=== PATIENT | male | born 1970 | race Caucasian/White ===

== ENCOUNTER 2018-01-03 11:04 | Outpatient (CLI) | payer MEDICARE ==
[2018-01-03 13:12] LABS: Bilirubin Small (Negative); Blood, Urine Negative (Negative); Clarity CLEAR (Clear); Glucose, Urine (Dipstick) Negative (Negative); Leukocyte Trace (Negative); Nitrite Negative (Negative); Protein, Urine (Dipstick) 30 mg/dL (Neg-Trace); Specific Gravity, Urine 1.031 (1.002-1.036); pH, Urine 5.5 (5.0-9.0)
[2018-01-03 13:15] LABS: Bacteria/HPF None Seen HPF (None Seen); Hyaline Casts/LPF 7-10 HYALINE CAST LPF (0-3 Hyaline); Pathc Cast-AUWi Flag 1.01 (0-2.49); Squamous Epithelial 0-3 HPF (0-3)
[2018-01-03 13:22] LABS: Hemoglobin 14.8 g/dL (14.0-18.0); Mean Corpuscular HGB CONC 33.6 g/dL (32.0-36.0); Mean Corpuscular Hemoglobin 30.6 pg (27.0-31.0); Mean Corpuscular Volume 91.2 fL (78.0-98.0); Mean Platelet Volume 7.6 fL (7.4-10.4); Platelet Count 278 thou/uL (130-400); RBC Distribution Width 11.6 % (11.5-14.5); Red Blood Cell (RBC) Count 4.84 mill/uL (4.70-6.10); White Blood Cell (WBC) Count 7.1 thou/uL (4.8-10.8)
[2018-01-03 13:26] LABS: PTT 32.1 SEC (22.9-36.1); Prothrombin Time 13.3 SEC (12.0-14.7)
[2018-01-03 13:34] LABS: RBC/HPF None Seen HPF (0-3)
[2018-01-03 13:35] LABS: Anion Gap 14 mmol/L (10-20); BUN (Urea Nitrogen) 21 mg/dL (8.9-20.6); Calc. Creatinine Clearance 0 mL/min (70-130); Calcium 9.3 mg/dL (7.8-10.44); Carbon Dioxide 23 mmol/L (22-29); Chloride 102 mmol/L (98-107); Estimated GFR-MDRD 47; Glucose 121 mg/dL (70-105); Potassium 3.7 mmol/L (3.5-5.1); Sodium 135 mmol/L (136-145)
--- NOTE | 2018-01-03 17:19 | EKG ---
Test Reason : Blood Pressure : / mmHG Vent. Rate : 090 BPM Atrial Rate : 090 BPM P-R Int : 174 ms QRS Dur : 112 ms QT Int : 452 ms P-R-T Axes : 033 -55 016 degrees QTc Int : 552 ms Normal sinus rhythm Left anterior fascicular block Prolonged QT Abnormal ECG When compared with ECG of 20-OCT-2015 19:48, QT has lengthened Confirmed by LIT AMARO, DR. S. ([id number]) on 01/03/2018 5:19:39 PM Referred By: RAYMOND Confirmed By:DR. Inna MURRIETA MD
== END 2018-01-03 11:05 | disposition home or self-care (01) ==
LOC: LABBT 11:04
PROVIDERS: ATTEND Urology
DX: Z01.818 Encounter for other preprocedural examination (principal); N20.0 Calculus of kidney
CPT/HCPCS: 80048; 81001; 85027; 85610; 85730; 87086; 93005; 93010

== ENCOUNTER 2018-02-21 06:41 | Outpatient (CLI) | payer MEDICARE ==
[2018-02-21 09:48] LABS: Hemoglobin 14.8 g/dL (14.0-18.0); Mean Corpuscular HGB CONC 32.3 g/dL (32.0-36.0); Mean Corpuscular Hemoglobin 29.5 pg (27.0-31.0); Mean Corpuscular Volume 91.3 fL (78.0-98.0); Mean Platelet Volume 7.7 fL (7.4-10.4); Platelet Count 238 thou/uL (130-400); RBC Distribution Width 11.8 % (11.5-14.5); Red Blood Cell (RBC) Count 5.02 mill/uL (4.70-6.10); White Blood Cell (WBC) Count 5.5 thou/uL (4.8-10.8)
[2018-02-21 09:50] LABS: Bilirubin Negative (Negative); Blood, Urine Negative (Negative); Clarity CLEAR (Clear); Glucose, Urine (Dipstick) Negative (Negative); Leukocyte Negative (Negative); Nitrite Negative (Negative); Protein, Urine (Dipstick) Trace mg/dL (Neg-Trace); Specific Gravity, Urine 1.022 (1.002-1.036); Urobilinogen 0.2 mg/dL (0.2-1.0)
[2018-02-21 09:53] LABS: Bacteria/HPF None Seen HPF (None Seen); Hyaline Casts/LPF 0-3 HYALINE CAST LPF (0-3 Hyaline); INR-International Normal Ratio 0.9; PTT 29.3 SEC (22.9-36.1); Pathc Cast-AUWi Flag 0.58 (0-2.49); Prothrombin Time 12.5 SEC (12.0-14.7); Squamous Epithelial 0-3 HPF (0-3)
[2018-02-21 09:54] LABS: Urine Culture Reflex Yes Yes
[2018-02-21 10:06] LABS: Anion Gap 14 mmol/L (10-20); BUN (Urea Nitrogen) 17 mg/dL (8.9-20.6); Calc. Creatinine Clearance 0 mL/min (70-130); Calcium 9.8 mg/dL (7.8-10.44); Carbon Dioxide 22 mmol/L (22-29); Chloride 106 mmol/L (98-107); Estimated GFR-MDRD 50; Glucose 142 mg/dL (70-105); Potassium 4.2 mmol/L (3.5-5.1); Sodium 138 mmol/L (136-145)
== END 2018-02-21 06:42 | disposition home or self-care (01) ==
LOC: LABBT 06:41
PROVIDERS: ATTEND Urology
DX: Z01.818 Encounter for other preprocedural examination (principal); N20.0 Calculus of kidney
CPT/HCPCS: 80048; 81001; 85027; 85610; 85730; 87086; 93005; 93010

== ENCOUNTER 2018-02-23 08:20 | Day surgery (SDC) | payer MEDICARE ==
[2018-02-21 08:47] VITALS: BMI 44.6
[2018-02-23] MEDS ORDERED: Levofloxacin 500 mg/D5W 100 ml Premix Bag ONE (10:11)
[2018-02-23] MEDS ORDERED: Iothalamate Meglumine 60% 50 ML VIAL FS ONE (10:58)
[2018-02-23] MEDS ORDERED: Fentanyl 100 MCG/2 ML VIAL ONE (11:01)
[2018-02-23] MEDS ORDERED: Midazolam HCl 2 mg/2 ml Vial ONE (11:11)
[2018-02-23] MEDS ORDERED: Oxybutynin 5 MG TAB ONE (13:01)
[2018-02-23] MEDS ORDERED: Phenazopyridine HCl 97.5 MG TABLET ONE (13:02)
[2018-02-23] MEDS ORDERED: Ondansetron PF 4 MG/2 ML Vial ONE ×2 (13:13→13:25)
[2018-02-23] MEDS ORDERED: PROPOFOL 200 MG/20 ML VIAL ONE (13:25)
[2018-02-23] MEDS ORDERED: Lidocaine 1% PF 5 ML VIAL ONE (13:25)
[2018-02-23] MEDS ORDERED: Glycopyrrolate 0.2 MG/ML 5 ML SYRINGE ONE (13:25)
[2018-02-23] MEDS ORDERED: Rocuronium Bromide 10 MG/ML (10ML VIAL) ONE (13:25)
[2018-02-23] MEDS ORDERED: Promethazine HCl 25 MG/ML VIAL ONE (13:33)
--- NOTE | 2018-02-23 20:12 | OP ---
DATE OF PROCEDURE: 02/23/2018 SERVICE: Urology. PREOPERATIVE DIAGNOSIS: Left distal ureteral stone, acute kidney injury. POSTOPERATIVE DIAGNOSIS: Left ureteral stone, acute kidney injury. PROCEDURES PERFORMED: Left ureteroscopy, laser lithotripsy, basket extraction of the stone, and placement of a 6 x 28 double-J stent. No string. INDICATIONS FOR PROCEDURE: Mr. Aldridge is a 47-year-old white male with a 1-cm distal left ureteral stone, which has caused significant pain. He has been unable to pass this and showing evidence of kidney injury, as such, we brought him into the operating room today for ureteroscopy and laser lithotripsy with basket extraction. Risks and benefits have been discussed and he has agreed to proceed forward. DESCRIPTION OF PROCEDURE: After identification of his armband and verification of consent, the patient was brought back to the operating room, where he underwent general anesthesia with endotracheal intubation. He was then placed in dorsal lithotomy position and prepped and draped in usual sterile fashion. After appropriate time-out, a lubricated 22-Divehi rigid cystoscope was introduced per urethra into the bladder. Attention was turned to the left ureteral orifice, which was cannulated with a 0.035 Sensor wire up to the level of renal pelvis. The cystoscope was then removed leaving the Sensor wire in place as a safety wire. A semi-rigid ureteroscope was then brought in alongside the Sensor wire into the urethra in the bladder and then into the distal ureter. Immediately apparent was a soft yellowish white stone in the distal ureter. Using a 365 micron laser fiber , the stone was fragmented into small pieces and then a 1.9-Divehi ZeroTip Nitinol basket was used to basket out the pieces for stone analysis. Upon final ureteroscopy, there did not appear to be any additional stone fragments left. The ureteroscope was then withdrawn and the cystoscope was back-loaded over the Sensor wire back into the bladder. A 6 x 28 double-J stent with no string was advanced over the Sensor wire up to the level of the renal pelvis. The wire was then removed leaving a good curl in the renal pelvis and good curl in the bladder. The bladder was emptied with removal of any additional stone fragments that were seen at the base of the bladder and all of this was sent for stone analysis. The cystoscope was then removed and the patient awakened and taken to PACU for recovery in stable condition. COMPLICATIONS: None. ESTIMATED BLOOD LOSS: Minimal. RETAINED TUBES AND DRAINS: A 6 x 28 double-J stent on the left. SPECIMEN: Stone for stone analysis. DISPOSITION: The patient will be discharged home and follow up with me in 1 week for cysto stent removal. Job ID: [id number] MTDD
[2018-02-28 10:15] LABS: Color Orange (.); Uric Acid 100 % (.)
== END 2018-02-23 15:05 | disposition home or self-care (01) ==
LOC: SDC 08:20
PROVIDERS: ATTEND Urology
PROC: 0TF78ZZ Fragmentation in Left Ureter, Via Natural or Artificial Opening Endoscopic (ICD-10-PCS; principal; 2018-02-23)
PROC: 0T778DZ Dilation of Left Ureter with Intraluminal Device, Via Natural or Artificial Opening Endoscopic (ICD-10-PCS; 2018-02-23)
DX: N20.1 Calculus of ureter (principal); N17.9 Acute kidney failure, unspecified; K21.9 Gastro-esophageal reflux disease without esophagitis; I10 Essential (primary) hypertension; E78.5 Hyperlipidemia, unspecified; E66.01 Morbid (severe) obesity due to excess calories; Z68.41 Body mass index [BMI] 40.0-44.9, adult; Z88.0 Allergy status to penicillin; Z88.2 Allergy status to sulfonamides; Z88.8 Allergy status to other drugs, medicaments and biological substances; Z79.899 Other long term (current) drug therapy
CPT/HCPCS: 52356; 76000; 82365; 88300; 96374 ×2; C1769; J1956; J2001; J2250; J2405; J2550; J2704; J3010; Q9961

== ENCOUNTER 2018-04-20 07:51 | Outpatient (CLI) | payer MEDICARE ==
--- NOTE | 2018-04-20 09:11 | ULT ---
ULTRASOUND RETROPERITONEUM COMPLETE: (RENAL) DATE: 04/20/18 HISTORY: 47-year-old male with nephrolithiasis. FINDINGS: The right kidney measures 13.5 x 7 x 6.5 cm. The left kidney measures 12 x 7 x 5.5 cm. Both kidneys have normal cortical thickness and normal cortical echogenicity. There is no hydronephrosis. Curso ry images of the urinary bladder demonstrate no gross abnormality. IMPRESSION: Normal jn [] POS: [facility]
== END 2018-04-20 07:52 | disposition home or self-care (01) ==
LOC: BICULT 07:51
PROVIDERS: ATTEND Urology
DX: N20.0 Calculus of kidney (principal)
CPT/HCPCS: 76770

== ENCOUNTER 2020-06-28 15:53 | Observation (INO) | payer MEDICARE ==
[~2020-06-28 15:53] MED LIST: Iopamidol-370 76% 500 ML 1 ML ONE
[2020-06-28] MEDS ORDERED: Ketorolac Tromethamine 30 MG/ML VIAL ONE (16:15)
[2020-06-28] MEDS ORDERED: Morphine 4 MG/ML VIAL ONE (16:15)
[2020-06-28] MEDS ORDERED: Morphine 2 MG/ML VIAL ONE (16:17)
[2020-06-28 16:27] LABS: #Basophils 0.1 thou/uL (0.0-0.2); #Eosinphils 0.2 thou/uL (0.0-0.7); #Lymphocytes 1.8 thou/uL (1.20-3.40); #Monocytes 0.4 thou/uL (0.11-0.59); #Neutrophils 4.4 thou/uL (1.40-6.50); %Basophils 1.2 % (0.0-1.0); %Eosinophils 2.7 % (0.0-10.0); %Lymphocytes 26.6 % (21.0-51.0); %Monocytes 5.4 % (0.0-10.0); %Neutrophils 64.3 % (42.0-75.0); Hemoglobin 15.1 g/dL (14.0-18.0); Mean Corpuscular HGB CONC 33.8 g/dL (32.0-36.0); Mean Corpuscular Hemoglobin 30.7 pg (27.0-31.0); Mean Platelet Volume 7.7 fL (7.4-10.4); Platelet Count 241 thou/uL (130-400); RBC Distribution Width 11.8 % (11.5-14.5); Red Blood Cell (RBC) Count 4.91 mill/uL (4.70-6.10); White Blood Cell (WBC) Count 6.9 thou/uL (4.8-10.8)
[2020-06-28 16:47] LABS: ALT (SGPT) 105 U/L (8-55); AST (SGOT) 88 U/L (5-34); Albumin 4.2 g/dL (3.5-5.0); Alkaline Phosphatase 111 U/L (40-110); Anion Gap 19 mmol/L (10-20); BUN (Urea Nitrogen) 15 mg/dL (8.9-20.6); Bilirubin, Total 0.7 mg/dL (0.2-1.2); Calc. Creatinine Clearance 0 mL/min (70-130); Carbon Dioxide 19 mmol/L (22-29); Chloride 99 mmol/L (98-107); Globulin 3.5 g/dL (2.4-3.5); Glucose 295 mg/dL (70-105); Lipase 37 U/L (8-78); Potassium 3.9 mmol/L (3.5-5.1); Protein, Total 7.7 g/dL (6.0-8.3); Sodium 133 mmol/L (136-145)
[2020-06-28] MEDS ORDERED: HYDROmorphone 0.5 MG/0.5 ML SYRINGE ONE ×2 (16:54→17:49)
[2020-06-28 18:09] LABS: Bacteria/HPF None Seen HPF (None Seen); Bilirubin Negative (Negative); Blood, Urine Trace (Negative); Clarity Clear (Clear); Glucose, Urine (Dipstick) 30 mg/dL (Negative); Ketone, Urine Negative (Negative); Leukocyte Negative Leu/uL (Negative); Nitrite Negative (Negative); Protein, Urine (Dipstick) 100 mg/dL (Neg-Trace); Squamous Epithelial 0-3 HPF (0-3); pH, Urine 6.5 (5.0-9.0)
[2020-06-28 18:10] LABS: Specific Gravity, Urine 1.053 (1.002-1.036)
== END 2020-06-28 18:12 | disposition left against medical advice (07) ==
LOC: ERS 15:53 → ERHOLD 17:38
PROVIDERS: ADMIT Internal Medicine; ATTEND Internal Medicine
DX: R07.9 Chest pain, unspecified (principal); M54.9 Dorsalgia, unspecified; K76.0 Fatty (change of) liver, not elsewhere classified; N28.1 Cyst of kidney, acquired; E03.9 Hypothyroidism, unspecified; I10 Essential (primary) hypertension; E78.00 Pure hypercholesterolemia, unspecified; E78.5 Hyperlipidemia, unspecified; Z79.899 Other long term (current) drug therapy; Z88.0 Allergy status to penicillin; Z88.2 Allergy status to sulfonamides
CPT/HCPCS: 71045; 71275; 74174; 80053; 83690; 84484; 85025; 93005; J2270; 36415; 81003; 81015; J1170; J1885; Q9967

== ENCOUNTER 2020-10-07 | Emergency (ER) | payer MEDICARE | END 2020-10-07 18:50 | disposition home or self-care (01) ==